=== PATIENT | female | born 1970 | race African-American/Black ===

== ENCOUNTER 2017-11-25 07:50 | Emergency (ER) | payer OTHER | END 2017-11-25 08:38 | disposition home or self-care (01) | LOC: SCSER 07:50 | DX: J06.9 Acute upper respiratory infection, unspecified (principal); Z79.899 Other long term (current) drug therapy | CPT/HCPCS: 99283 ==

== ENCOUNTER 2018-01-16 11:37 | Inpatient (IN) | payer OTHER, SELFPAY ==
[2018-01-16 12:37] LABS: ALT (SGPT) 25 U/L (8-55); AST (SGOT) 56 U/L (5-34); Albumin 3.2 g/dL (3.5-5.0); Alkaline Phosphatase 197 U/L (40-150); Anion Gap 10 mmol/L (10-20); BUN (Urea Nitrogen) 9 mg/dL (7.0-18.7); Bilirubin, Total 0.4 mg/dL (0.2-1.2); Calc. Creatinine Clearance 0 mL/min (70-130); Calcium 8.3 mg/dL (7.8-10.44); Carbon Dioxide 29 mmol/L (22-29); Chloride 100 mmol/L (98-107); Estimated GFR-MDRD Greater than 90; Globulin 3.9 g/dL (2.4-3.5); Glucose 123 mg/dL (70-105); Mean Corpuscular HGB CONC 31.3 g/dL (32.0-36.0); Mean Corpuscular Volume 86.3 fl (81.0-99.0); Mean Platelet Volume 6.7 fL (7.4-10.4); Platelet Count 487 thou/uL (130-400); Potassium 3.2 mmol/L (3.5-5.1); Protein, Total 7.1 g/dL (6.0-8.3); RBC Distribution Width 14.5 % (11.5-14.5); Red Blood Cell (RBC) Count 4.06 mill/uL (4.20-5.40); Sodium 136 mmol/L (136-145)
[2018-01-16 12:54] LABS: Band 27 % (5-11); Hypochromia SLIGHT = 6-15 cells (100X) (0-5/hpf); Lymphocytes 11 % (21-51); MDiff Complete? YES; Monocytes 4 % (0-10); Neutrophil 58 % (42-75); PLT Morphology Comment Appears Increased; Polychromasia SLIGHT = 2-3 cells (100X) (0-2/hpf)
[2018-01-16] MEDS ORDERED: Azithromycin 500 MG VIAL ONE (13:12)
--- NOTE | 2018-01-16 13:12 | RAD ---
AP VIEW OF THE CHEST: INDICATION: History of pneumonia, hypoxia, and cough. FINDINGS: There is diffuse parenchymal opacification of the left lung suspicious for multilobar pneumonia. The right lung is clear. No definite pleural effusion or pneumothorax is evident. IMPRESSION: Findings concerning for multilobar pneumonia affecting the left lung. Continued followup is recommen ded. POS: [facility]
[2018-01-16] MEDS ORDERED: Benzonatate 100 MG CAP ONE (13:20)
[2018-01-16] MEDS ORDERED: Ibuprofen 200 MG TAB ONE (13:20)
[2018-01-16 16:01] VITALS: BMI 38.2
[2018-01-16] MEDS ORDERED: Sodium Chloride 0.9% 1,000 ML IV SCH (16:15)
[2018-01-16] MEDS ORDERED: Famotidine 20 MG TAB PO PRN (17:54)
[2018-01-16] MEDS ORDERED: Docusate 100 MG CAP PO PRN (17:56)
[2018-01-16] MEDS: Sodium Chloride 0.9% 1,000 ML IV SCH ×2 (18:16→20:23)
[2018-01-16] MEDS: Diabetic Tussin 200 MG/10 ML UDCUP PO PRN ×2 (18:21→23:05)
[2018-01-16] MEDS: Promethazine 25 MG TAB PO PRN ×2 (19:01→23:05)
[2018-01-16] MEDS: cefTRIAXone\\ROCEPHIN 2 GM in Sodium Chloride 0.9% 100 ML IVPB SCH (20:22)
[2018-01-16] MEDS: Benzonatate 100 MG CAP PO PRN (20:23)
[2018-01-17] MEDS: Sodium Chloride 0.9% 1,000 ML IV SCH (02:47)
[2018-01-17 05:13] LABS: #Lymphocytes 2.1 thou/uL (1.20-3.40); #Monocytes 0.9 thou/uL (0.11-0.59); #Neutrophils 9.6 thou/uL (1.40-6.50); %Basophils 0.3 % (0.0-1.0); %Eosinophils 0.4 % (0.0-10.0); %Lymphocytes 16.2 % (21.0-51.0); %Monocytes 7.3 % (0.0-10.0); %Neutrophils 75.8 % (42.0-75.0); Hemoglobin 10.1 g/dL (12.0-16.0); Mean Corpuscular HGB CONC 32.4 g/dL (32.0-36.0); Mean Corpuscular Hemoglobin 28.2 pg (27.0-31.0); Mean Platelet Volume 6.5 fL (7.4-10.4); Platelet Count 470 thou/uL (130-400); RBC Distribution Width 14.6 % (11.5-14.5); Red Blood Cell (RBC) Count 3.59 mill/uL (4.20-5.40); White Blood Cell (WBC) Count 12.6 thou/uL (4.8-10.8)
--- NOTE | 2018-01-17 05:32 | HP ---
DATE OF ADMISSION: 01/16/2018 PRIMARY CARE PHYSICIAN: Dr. Kvng Grant CHIEF COMPLAINT: Shortness of breath. HISTORY OF PRESENT ILLNESS: The patient presented to clinic following worsening shortness of breath over the last several days. She was treated for allergies on an outpatient basis approximately 1 mon ago, making her upper respiratory symptoms blend into her shortness of breath episode which acute ly had gotten worse. She has had fever in the last 1-2 days. She was found to be hypoxic in clinic and stabilized on nasal cannula. Ambulance transported the patient to the emergency department which confirmed a left lower lobe pneumonia. PAST MEDICAL/SURGICAL HISTORY: Includes seasonal allergies, history of tachycardia treated with aten olol under the care of Dr. Mcdonnell. No reported prior surgical history. SOCIAL HISTORY: No tobacco history or illicit drug use. FAMILY HISTORY: Mother with diabetes and hypertension. Father diagnosed with cancer. HOME MEDICATIONS: Atenolol 25 mg daily, ranitidine 30 mg at bedtime p.r.n., Zyrtec daily p.r.n. REVIEW OF SYSTEMS: The patient with positive fevers, chills, fatigue. Positive shortness of breath. Negative chest pain. No abdomen pain, no change in stools, no skin rashes. No headache, no vision changes. No lower extremity edema. Positive cough. Positive congestion. PHYSICAL EXAMINATION: VITAL SIGNS: On arrival to floor, temperature of 98.3, pulse of 101, respiratory rate of 20, oxygen saturation of 95% on 2 liters nasal cannula, blood pressure 104/69, room air saturation in clinic ran ged between 84 and 88. LABORATORY WORK: White blood cell count of 17, platelet count of 487, hemoglobin of 11, sodium 136, potassium of 3.2, CO2 of 29, BUN of 9, creatinine 0.79, glucose of 123, total bilirubin of 0.4, AST i s 56, ALT 25, alkaline phosphatase of 197, albumin of 3.2. Blood culture currently pending. Chest x -ray confirms multilobar left-sided pneumonia. PHYSICAL EXAMINATION: GENERAL: The patient is alert and oriented, in acute respiratory distress. HEENT: Head is normocephalic, atraumatic. Extraocular movements are intact. Sclerae are clear. Or al mucosa is somewhat dry. NECK: Supple. HEART: Tachycardic. No murmurs auscultated. LUNGS: Diminished breath sounds and poor air movement with left lower rhonchi or rales. No wheezes auscultated. ABDOMEN: Soft, nontender, positive bowel sounds throughout. EXTREMITIES: Lower extremities without cyanosis or edema. NEUROLOGIC: The patient is alert and oriented. No focal deficits. Speech is normal. ASSESSMENT AND PLAN: Sepsis secondary to community-acquired pneumonia with hypoxia. Continuing Roce phin and azithromycin, IV fluids from the emergency department. We will follow up laboratory work an d repeat chest x-ray. We will continue the patient's atenolol this point in time. We will attempt t o wean the patient from oxygen as able.
[2018-01-17 05:37] LABS: Anion Gap 12 mmol/L (10-20); BUN (Urea Nitrogen) 7 mg/dL (7.0-18.7); Calc. Creatinine Clearance 154 mL/min (70-130); Calcium 7.8 mg/dL (7.8-10.44); Carbon Dioxide 27 mmol/L (22-29); Chloride 104 mmol/L (98-107); Estimated GFR-MDRD Greater than 90; Glucose 107 mg/dL (70-105); Potassium 3.2 mmol/L (3.5-5.1); Sodium 140 mmol/L (136-145)
[2018-01-17] MEDS ORDERED: Potassium Chloride 20 MEQ TAB PO SCH (06:00)
--- NOTE | 2018-01-17 07:39 | PRG ---
DATE OF SERVICE: 01/17/2018 HISTORY OF PRESENT ILLNESS: The patient states she tolerated the 3 liters IV fluids overnight well, has felt significantly nauseated and has not had significant emesis, but has been struggling to cough up the sputum production. She has been given Mucinex, Tessalon Perles, hot tea with some relief, bu t still struggles with the sputum, is feeling comfortable at rest; however, on nasal cannula 2 liters , still desaturating at this point off oxygen, tolerating IV antibiotics at this point in time. Did not ask for her stomach acid medication, does report some acid reflux. No blood reported. PHYSICAL EXAMINATION: VITAL SIGNS: This a.m., temperature 98.7, pulse of 93, respiratory rate of 18, oxygen saturation 96% on 2 liters nasal cannula, blood pressure 119/74. GENERAL: The patient is alert and oriented, in no acute distress. HEENT: Head is normocephalic, atraumatic. Extraocular movements are intact. Sclerae are clear. Na makeda cannula in place. Oral mucosa is moist. NECK: Supple. HEART: Regular rate and rhythm. No murmurs auscultated. LUNGS: With improved air movement, chest expansion; however, continues with rhonchi to left lung fie lds. ABDOMEN: Soft, nontender, positive bowel sounds throughout. EXTREMITIES: Lower extremities without cyanosis or edema. NEUROLOGIC: The patient is alert and oriented x3, no focal deficits. Speech is normal. LABORATORY DATA: White blood cell count improved to 12.6, hemoglobin of 10, MCV 87, platelet count o f 470. Sodium 140, potassium of 3.2, chloride of 104, CO2 of 27, creatinine 0.79, glucose 107. Bloo d cultures pending initial read, pending chest x-ray this a.m. ASSESSMENT AND PLAN: 1. Community-acquired pneumonia, sepsis, hypoxia secondary to respiratory failure, hypokalemia. Con tinuing IV antibiotics and oxygen support. The patient progressing is expected at this point, we ulysses l likely need 3 days of IV antibiotics and oxygen support. We will reassess the patient's ability to titrate off oxygen. Given sepsis criteria, the patient was aggressively hydrated with 3 liters IV f luid at this point and has been discontinued. We will see how she tolerates liquids today. White bl ood cell count and heart rate is much improved Hypokalemia remains from admission and was not changed following IV antibiotics and IV fluids. We will replace with potassium chloride and recheck, may ne ed to follow up magnesium if not improved. We will consider deep venous thrombosis prophylaxis as th e patient is currently oxygen bound.
--- NOTE | 2018-01-17 08:37 | RAD ---
2 VIEWS CHEST: Date 01/17/18 HISTORY: Pneumonia. FINDINGS: Comparison made to previous exam from 01/16/18. AP view of chest demonstrates extensive air space opacity seen in the left upper lobe lingula and lef t lower lobe. This was present on the previous comparison exam and is unchanged. Right lung is well a erated. No other significant abnormalities seen. IMPRESSION: Extensive left lung air space opacity, not significantly changed since the previous exam. POS: [facility]
[2018-01-17] MEDS: Famotidine 20 MG TAB PO SCH ×2 (08:50→20:02)
[2018-01-17] MEDS: Atenolol 25 MG TAB PO SCH (08:50)
[2018-01-17] MEDS: Acetaminophen 500 MG TAB PO PRN (08:51)
[2018-01-17] MEDS: Diabetic Tussin 200 MG/10 ML UDCUP PO PRN ×3 (08:51→17:19)
[2018-01-17] MEDS: Promethazine 25 MG TAB PO PRN ×2 (08:58→17:29)
[2018-01-17] MEDS: Azithromycin 500 MG in Sodium Chloride 0.9% 250 ML 250 ML IVPB SCH (12:39)
[2018-01-17] MEDS: cefTRIAXone\\ROCEPHIN 2 GM in Sodium Chloride 0.9% 100 ML IVPB SCH (20:01)
[2018-01-17] MEDS: Enoxaparin Sodium 40 MG/0.4 ML SYRINGE SC SCH (20:02)
[2018-01-17] MEDS: Benzonatate 100 MG CAP PO PRN (20:03)
[2018-01-17] MEDS: Ondansetron ODT 4 MG TAB PO PRN (20:03)
[2018-01-17] MEDS: guaiFENesin/Codeine Phosphate 200 mg/20 mg 10 ml UD Cup PO PRN (20:04)
[2018-01-18] MEDS: Benzonatate 100 MG CAP PO PRN ×3 (06:32→20:16)
[2018-01-18] MEDS: guaiFENesin/Codeine Phosphate 200 mg/20 mg 10 ml UD Cup PO PRN ×3 (06:33→20:16)
[2018-01-18 07:54] LABS: Anion Gap 11 mmol/L (10-20); BUN (Urea Nitrogen) 9 mg/dL (7.0-18.7); Calc. Creatinine Clearance 152 mL/min (70-130); Calcium 8.4 mg/dL (7.8-10.44); Carbon Dioxide 28 mmol/L (22-29); Chloride 102 mmol/L (98-107); Estimated GFR-MDRD Greater than 90; Glucose 131 mg/dL (70-105); Potassium 3.3 mmol/L (3.5-5.1); Sodium 138 mmol/L (136-145)
[2018-01-18 08:29] LABS: Mean Corpuscular HGB CONC 31.1 g/dL (32.0-36.0); Mean Corpuscular Hemoglobin 27.7 pg (27.0-31.0); Mean Corpuscular Volume 89.1 fl (81.0-99.0); Platelet Count 513 thou/uL (130-400); RBC Distribution Width 14.7 % (11.5-14.5); Red Blood Cell (RBC) Count 3.62 mill/uL (4.20-5.40); White Blood Cell (WBC) Count 11.7 thou/uL (4.8-10.8)
[2018-01-18] MEDS: Atenolol 25 MG TAB PO SCH (08:35)
[2018-01-18] MEDS: Acetaminophen 500 MG TAB PO PRN (08:36)
[2018-01-18] MEDS: Famotidine 20 MG TAB PO SCH ×2 (08:36→20:15)
[2018-01-18] MEDS: Loratadine 10 MG TAB PO PRN (08:41)
[2018-01-18 09:33] LABS: Band 18 % (5-11); Eosinophils 1 % (0-10); Lymphocytes 21 % (21-51); MDiff Complete? YES; Monocytes 10 % (0-10); Neutrophil 49 % (42-75)
[2018-01-18 09:34] LABS: Hypochromia SLIGHT = 6-15 cells (100X) (0-5/hpf); Metamyelocyte 1 % (0-0); PLT Morphology Comment Appears Increased; Polychromasia SLIGHT = 2-3 cells (100X) (0-2/hpf)
--- NOTE | 2018-01-18 10:16 | RAD ---
PA AND LATERAL VIEWS OF CHEST: Date: 01/18/18 HISTORY: Pneumonia. FINDINGS: Comparison made with exam from previous day. The heart size is stable. Lungs are well expanded with extensive left lung opacities, without signifi cant interval change. No pneumothoraces or large effusions are seen. Small effusions may be present. IMPRESSION: Left lung pneumonia. POS: [facility]
[2018-01-18] MEDS: Azithromycin 500 MG in Sodium Chloride 0.9% 250 ML 250 ML IVPB SCH (11:04)
--- NOTE | 2018-01-18 13:07 | PRG ---
DATE OF SERVICE: 01/18/2018 HISTORY OF PRESENT ILLNESS: The patient had infiltration in her IV site. Nursing staff has so far b een unable to reestablish IV access. Currently, attempted one more time after speaking with the nayla ent, if unable to obtain IV access will transition azithromycin to oral and to give the next dose of Rocephin IM. The patient does feel she is improved in energy status, tolerating food well compared t o throwing up the day before. She has maintained desaturations to 88 percentile range at rest off of nasal cannula, saturating well on 2 liters nasal cannula. No additional acute complaints today. VITAL SIGNS: Temperature 98.6, pulse of 93, respiratory rate of 18, oxygen saturation 95% on 2 liter s nasal cannula, blood pressure 101/68. LABORATORY DATA: Sodium 138, potassium of 3.3, CO2 of 28, creatinine 0.8, magnesium of 2.1. White b lood cell count of 11.7, hemoglobin 10.0, MCV of 89.1, platelet count of 513. Chest x-ray without interval improvement, left lower lobe pneumonia remains. A question of pleural e ffusions per Radiology. PHYSICAL EXAMINATION: GENERAL: The patient is alert and oriented, in no acute distress. HEENT: Head is normocephalic, atraumatic. Extraocular movements intact. Sclerae are clear. Oral m ucosa is moist. Nasal cannula is in place. NECK: Supple. HEART: Regular rate and rhythm. No murmurs auscultated. LUNGS: With improved left lower lung ray. Coarse breath sounds bilaterally lower bases. No whee zes. Light crackles present. ABDOMEN: Soft, nontender, positive bowel sounds throughout. EXTREMITIES: Lower extremities without cyanosis or edema. NEUROLOGIC: The patient is alert and oriented x3, no focal deficits. Speech is normal. ASSESSMENT AND PLAN: Community-acquired pneumonia, sepsis, hypoxia secondary to pneumonia, acute res piratory failure, hypokalemia. We will continue antibiotics, azithromycin and Rocephin as above. We will consider p.o. and IM if IV access is unable to be obtained. We will consider discharging the p atient tomorrow with home health oxygen versus home with oral antibiotics if improved saturations at rest, currently saturating 88%. Potassium still remains borderline. Magnesium is not low, replaceme nt with Klor-Con not effective. The patient is eating better today; however, may represent GI losses yesterday or antibiotic use. We will continue to follow.
[2018-01-18] MEDS: Promethazine 25 MG TAB PO PRN ×2 (17:06→20:16)
[2018-01-18] MEDS: cefTRIAXone\\ROCEPHIN 2 GM in Sodium Chloride 0.9% 100 ML IVPB SCH (20:14)
[2018-01-18] MEDS: Enoxaparin Sodium 40 MG/0.4 ML SYRINGE SC SCH (20:15)
[2018-01-19] MEDS: Ondansetron ODT 4 MG TAB PO PRN (02:22)
[2018-01-19] MEDS: Atenolol 25 MG TAB PO SCH (09:21)
[2018-01-19] MEDS: Famotidine 20 MG TAB PO SCH ×2 (09:21→20:31)
[2018-01-19] MEDS: Amoxicillin/Potassium Clav 875 MG TAB PO SCH ×2 (09:21→20:31)
[2018-01-19] MEDS: Loratadine 10 MG TAB PO PRN (09:21)
[2018-01-19] MEDS: Benzonatate 100 MG CAP PO PRN ×2 (09:22→20:31)
[2018-01-19] MEDS: Diabetic Tussin 200 MG/10 ML UDCUP PO PRN ×3 (09:22→20:32)
[2018-01-19] MEDS: Promethazine 25 MG TAB PO PRN (09:26)
[2018-01-19] MEDS ORDERED: Furosemide 40 MG/4 ML VIAL SLOW IVP SCH (12:00)
--- NOTE | 2018-01-19 12:02 | PRG ---
DATE OF SERVICE: 01/19/2018 HISTORY OF PRESENT ILLNESS: The patient still feels fatigued compared to baseline. Reports stable on 2 liters nasal cannula. Ambulated with nursing staff. Desaturations down to 84% desaturates into 88-86% on room air seated. The patient is tolerating oral intake well. No additional complaints other than slight rib pain with cough and difficulty producing sputum. The patient is taking antitussives and Mucinex at this point in time successfully, 3 days of IV antibiotics. Speaking with case management she does not qualify for home oxygen therapy and will be staying with us over the weekend until she is no longer hypoxic. PHYSICAL EXAMINATION: VITAL SIGNS: Today, temperature 98.8, pulse is 83, respiratory rate of 16, oxygen saturation 94% on 2 liters nasal cannula, blood pressure 114/78. Blood cultures negative at 48 hours. GENERAL: The patient is alert and oriented, no acute distress. HEENT: Head is normocephalic, atraumatic. Extraocular movements are intact. Sclerae are clear. Neck is supple. Oral mucosa is moist. Nasal cannula in place. CARDIOVASCULAR: Regular rate and rhythm at time of exam. No murmurs auscultated. RESPIRATORY: Positive rhonchi, left lower lobe present. Good air movement bilaterally. ABDOMEN: Soft, nontender, positive bowel sounds throughout. EXTREMITIES: Lower extremities without cyanosis or edema. NEUROLOGIC: The patient is alert and oriented. No focal deficits. Speech is normal. ASSESSMENT AND PLAN: Resolved sepsis, community-acquired pneumonia, left lobular transitioning from Rocephin and azithromycin after 72 hours and to oral Augmentin for the patient's acute respiratory failure and hypoxia secondary to pneumonia. Continuing oxygen therapy. This is what will be her determining factor for discharge. Regarding her hypokalemia we will recheck labs in the morning, prior thought to be secondary to gastrointestinal losses following emesis. The patient is no longer throwing up and tolerating orals well. We will follow up potassium in a.m., magnesium checked yesterday was good. The patient currently on Klor-Con 20 mEq b.i.d. replacement. The patient on prophylactic Lovenox. Will attempt lasix and steroid burst to see if we can improve lung function. MTDD
[2018-01-19] MEDS: Acetaminophen 500 MG TAB PO PRN (12:44)
[2018-01-19] MEDS: Enoxaparin Sodium 40 MG/0.4 ML SYRINGE SC SCH (20:32)
[2018-01-20] MEDS: Diabetic Tussin 200 MG/10 ML UDCUP PO PRN ×2 (03:27→08:29)
[2018-01-20] MEDS: Benzonatate 100 MG CAP PO PRN ×2 (04:42→08:19)
[2018-01-20 05:15] LABS: Anion Gap 11 mmol/L (10-20); BUN (Urea Nitrogen) 11 mg/dL (7.0-18.7); Calc. Creatinine Clearance 156 mL/min (70-130); Calcium 8.6 mg/dL (7.8-10.44); Carbon Dioxide 30 mmol/L (22-29); Chloride 99 mmol/L (98-107); Estimated GFR-MDRD Greater than 90; Glucose 125 mg/dL (70-105); Sodium 136 mmol/L (136-145)
[2018-01-20 05:26] LABS: #Eosinphils 0.3 thou/uL (0.0-0.7); #Lymphocytes 3.3 thou/uL (1.20-3.40); #Monocytes 0.8 thou/uL (0.11-0.59); #Neutrophils 9.3 thou/uL (1.40-6.50); %Basophils 0.3 % (0.0-1.0); %Eosinophils 2.3 % (0.0-10.0); %Lymphocytes 23.9 % (21.0-51.0); %Monocytes 5.9 % (0.0-10.0); %Neutrophils 67.5 % (42.0-75.0); Hemoglobin 10.3 g/dL (12.0-16.0); Mean Corpuscular Hemoglobin 28.3 pg (27.0-31.0); Mean Corpuscular Volume 88.2 fl (81.0-99.0); Mean Platelet Volume 6.6 fL (7.4-10.4); Platelet Count 585 thou/uL (130-400); RBC Distribution Width 14.7 % (11.5-14.5); Red Blood Cell (RBC) Count 3.64 mill/uL (4.20-5.40); White Blood Cell (WBC) Count 13.8 thou/uL (4.8-10.8)
[2018-01-20] MEDS: Famotidine 20 MG TAB PO SCH ×2 (08:13→20:45)
[2018-01-20] MEDS: Atenolol 25 MG TAB PO SCH (08:13)
[2018-01-20] MEDS: Amoxicillin/Potassium Clav 875 MG TAB PO SCH ×2 (08:13→20:45)
[2018-01-20] MEDS: Acetaminophen 500 MG TAB PO PRN (08:19)
[2018-01-20] MEDS: Loratadine 10 MG TAB PO PRN (08:23)
--- NOTE | 2018-01-20 10:28 | RAD ---
PA AND LATERAL OF THE CHEST: HISTORY: Pneumonia. COMPARISON: Prior dated 01/19/08. FINDINGS: The airspace consolidation within the left lower lobe has improved from the prior examination. There are persistent small bilateral pleural effusions. Patchy opacities remain within the left lower lob e as well as portions of the left upper lobe. Thoracolumbar scoliosis is similar. IMPRESSION: 1. Improving left lung pneumonia. Patchy opacities remain within the left upper lobe and left lower lobe. 2. Small bilateral pleural effusions persist. POS: [facility]
[2018-01-20] MEDS ORDERED: methylPREDNISolone Sod Succ/PF 125 MG/2 ML VIAL IVP ONE (11:52)
[2018-01-20] MEDS: guaiFENesin/Codeine Phosphate 200 mg/20 mg 10 ml UD Cup PO PRN ×2 (12:18→20:50)
--- NOTE | 2018-01-20 12:21 | PRG ---
DATE OF SERVICE: 01/20/2018 PRIMARY CARE PHYSICIAN: Kvng Grant M.D. SUBJECTIVE: The patient is feeling much better. She improved significantly after the 1 dose of IV L asix. She is ambulating in the hallway with occasional dyspnea on exertion, but better with her oxyg en in bed. She is not short of breath. Her pulse ox is staying at 94% to 95% on room air and taking p.o. well. States that she is anxious to get home, but continues to feel short of breath when walki ng in the hallway. OBJECTIVE: VITAL SIGNS: Temperature 97.8, T-max 97.9, pulse 89-100, respirations 16, pulse ox is 94% to 95% on room air and blood pressure 122/79. GENERAL: She is awake and alert, in no acute distress, resting comfortably in bed. HEENT: Mucosa is moist. NECK: Supple. HEART: Regular rate and rhythm. LUNGS: With some rhonchi on the left side. No wheeze, no rales at the bases. ABDOMEN: Obese, soft, nontender and nondistended. EXTREMITIES: With no edema. LABORATORY AND IMAGING DATA: Sodium 136, potassium 4.0, chloride 99, CO2 of 30, BUN and creatinine 1 1 and 0.78, serum glucose of 125. White blood cell count 13.8 thousand, hemoglobin and hematocrit 10 .3 and 32.1, platelets of 585. Chest x-ray from this morning revealed improved left lung pneumonia. Continues to have patchy opacities in the left upper and left lower lobe, bilateral small pleural ef fusions. ASSESSMENT AND PLAN: This is a 47-year-old female patient of Dr. Kvng Grant with resolved sepsi s, community-acquired pneumonia, continues stable on oral Augmentin at this time. 1. Left-sided pneumonia. We will continue Augmentin. 2. Hypoxia has improved. I will begin weaning off her oxygen today. Continue to monitor pulse oxim etry and just use oxygen as needed after walking. Her insurance did not approve home O2, so she is n ot safe to go home at this point. 3. Hypokalemia has resolved. We will continue to follow in the morning. Nausea and vomiting has re solved, so this should improve. 4. Prophylaxis. Lovenox. We will continue until she is up ambulating better on her own and spendin g less time in bed. 5. Disposition: If she can wean off of her oxygen, hopefully home in the morning.
[2018-01-20] MEDS ORDERED: Saccharomyces boulardii 250 MG CAP PO SCH (20:30)
[2018-01-20] MEDS: Enoxaparin Sodium 40 MG/0.4 ML SYRINGE SC SCH (20:45)
[2018-01-21] MEDS: Acetaminophen 500 MG TAB PO PRN ×2 (04:55→12:11)
[2018-01-21] MEDS: Diabetic Tussin 200 MG/10 ML UDCUP PO PRN ×2 (04:56→11:58)
[2018-01-21] MEDS: Benzonatate 100 MG CAP PO PRN ×2 (04:56→11:58)
[2018-01-21 05:29] LABS: Anion Gap 13 mmol/L (10-20); BUN (Urea Nitrogen) 12 mg/dL (7.0-18.7); Calc. Creatinine Clearance 154 mL/min (70-130); Calcium 9.5 mg/dL (7.8-10.44); Carbon Dioxide 26 mmol/L (22-29); Chloride 102 mmol/L (98-107); Estimated GFR-MDRD Greater than 90; Glucose 118 mg/dL (70-105); Potassium 4.7 mmol/L (3.5-5.1); Sodium 136 mmol/L (136-145)
[2018-01-21 06:02] LABS: Band 6 % (5-11); Hemoglobin 10.5 g/dL (12.0-16.0); Lymphocytes 16 % (21-51); MDiff Complete? YES; Mean Corpuscular HGB CONC 32.1 g/dL (32.0-36.0); Mean Corpuscular Hemoglobin 27.8 pg (27.0-31.0); Mean Corpuscular Volume 86.6 fl (81.0-99.0); Mean Platelet Volume 6.1 fL (7.4-10.4); Monocytes 5 % (0-10); Neutrophil 73 % (42-75); PLT Morphology Comment Appears Increased; Platelet Count 644 thou/uL (130-400); RBC Distribution Width 14.6 % (11.5-14.5); Red Blood Cell (RBC) Count 3.77 mill/uL (4.20-5.40); White Blood Cell (WBC) Count 19.4 thou/uL (4.8-10.8)
[2018-01-21] MEDS: Amoxicillin/Potassium Clav 875 MG TAB PO SCH (08:07)
[2018-01-21] MEDS: Famotidine 20 MG TAB PO SCH (08:07)
[2018-01-21] MEDS: Atenolol 25 MG TAB PO SCH (08:07)
[2018-01-21] MEDS: Loratadine 10 MG TAB PO PRN (08:08)
[2018-01-21 08:20] VITALS: BP 124/77; TEMP 97.4
[2018-01-21] MEDS ORDERED: Saccharomyces boulardii 250 MG CAP PO SCH (09:00)
--- NOTE | 2018-01-21 10:32 | DIS ---
DATE OF ADMISSION: 01/16/2018 DATE OF DISCHARGE: 01/21/2018 PRIMARY CARE PHYSICIAN: Kvng Grant M.D. ADMISSION DIAGNOSES: 1. Left-sided pneumonia. 2. Sepsis syndrome. 3. Hypoxia. DISCHARGE DIAGNOSES: 1. Left-sided pneumonia, improved. 2. Sepsis, resolved. 3. Hypertension. 4. Tachycardia. CONSULTATIONS: None. PROCEDURES: IV antibiotics, oxygen therapy. HOSPITAL COURSE: This is a 47-year-old female patient of Dr. Kvng Grant, who presented to the e mergency department with worsening shortness of breath and upper respiratory symptoms. She was found to be hypoxic in the clinic. She was taken to the Emergency Department by ambulance and found to dumont ve a left lower lobe infiltrate. She improved with Rocephin and Zithromax. She was continued on ant ibiotic therapy during her hospitalization. She was started on DVT prophylaxis as well during her ho spitalization she transitioned to oral antibiotics including Augmentin and continued to improve. Zoila ns were made for her to be discharged home with home O2 due to her continued hypoxia with desatting i nto the 85-86 range. Her insurance would not facilitate that and assist with payment, so she was kep t in the hospital due to her persistent hypoxia. She continued to improve. She was weaned off of th e oxygen and was stable walking in the room without desatting. She was able to take a shower without desaturation. She reports less shortness of breath with decreased activity. No further fever and s table for discharge on the day of discharge. DISCHARGE PHYSICAL EXAMINATION: VITAL SIGNS: Temperature 97.4, pulse of 88, respirations 18, blood pressure 124/77, pulse ox 95% on room air. GENERAL: She is awake and alert, no conversational dyspnea. NECK: Supple. HEART: Regular rate and rhythm. LUNGS: With decreased breath sounds on the left side. No wheezes or rales. ABDOMEN: Obese, soft. EXTREMITIES: No edema. DISCHARGE LABORATORY DATA AND IMAGING DATA: Sodium is 136, potassium 4.7, chloride 102, CO2 26, BUN and creatinine 12 and 0.79. GFR of 90. Serum glucose was 118. White blood cell count was 19.4 thou sand, hemoglobin and hematocrit 10.5 and 32.6, platelets of 644, bandemia was down to 6% which was 27 % on admission. Blood culture is negative. Chest x-ray from yesterday revealed persistent left-side d infiltrate. DISCHARGE MEDICATIONS: Include, Tylenol p.r.n., Augmentin 875 b.i.d. for 7 more days, atenolol 25 mg daily, Pepcid p.r.n., potassium chloride 10 mEq daily, Florastor once daily. FOLLOWUP INSTRUCTIONS: Patient to follow up with Dr. Grant this next week. Follow up outpatient. Results of C. diff screen as an outpatient for onset of diarrhea.
== END 2018-01-21 14:47 | disposition home or self-care (01) | DRG 871 ==
LOC: ERS 11:37 → T4-B 13:30
PROVIDERS: ADMIT Family Medicine; ATTEND Family Medicine
DX: A41.9 Sepsis, unspecified organism (principal); J18.9 Pneumonia, unspecified organism; J96.01 Acute respiratory failure with hypoxia; I10 Essential (primary) hypertension; E87.6 Hypokalemia
CPT/HCPCS: 36415; 71045; 71046; 80048; 80053; 83735; 85025; 87040; 87324; 87449; 93005; 96365; 96366; 96375; J0456; J0696; J1650; J1940; J2930; J7050; Q0162

== ENCOUNTER 2018-07-04 14:29 | Outpatient (CLI) | payer BC | END 2018-07-04 14:30 | disposition home or self-care (01) | LOC: BICMAMMO 14:29 | PROVIDERS: ATTEND Family Medicine | DX: Z12.31 Encounter for screening mammogram for malignant neoplasm of breast (principal); R76.11 Nonspecific reaction to tuberculin skin test without active tuberculosis | CPT/HCPCS: 71046; 77063; 77067 ==

== ENCOUNTER 2019-08-13 15:05 | Outpatient (CLI) | payer BC ==
--- NOTE | 2019-08-13 15:42 | MMO ---
Bilateral MAMMO Bilat Screen [facility]. CLINICAL HISTORY: Patient is 48 years old and is seen for screening. The patient has no family history of breast cancer. The patient has no personal history of cancer. VIEWS: The views performed were: bilateral craniocaudal with tomosynthesis; bilateral mediolateral oblique; and bilateral mediolateral oblique with tomosynthesis. FILMS COMPARED: The present examination has been compared to prior imaging studies performed at [facility] on 07/04/2018, and at [facility] on 08/28/2015, 02/18/2016 and 10/24/2016. This study has been interpreted with the assistance of computer-aided detection. MAMMOGRAM FINDINGS: There are scattered fibroglandular densities. There are no suspicious masses, suspicious calcifications, or new areas of architectural distortion. IMPRESSION: THERE IS NO MAMMOGRAPHIC EVIDENCE OF MALIGNANCY. A ROUTINE FOLLOW-UP MAMMOGRAM IN 1 YEAR IS RECOMMENDED. THE RESULTS OF THIS EXAM WERE SENT TO THE PATIENT. ACR BI-RADS Category 1 - Negative MAMMOGRAPHY NOTE: 1. A negative mammogram report should not delay a biopsy if a dominant of clinically suspicious mass is present. 2. Approximately 10% to 15% of breast cancers are not detected by mammography. 3. Adenosis and dense breasts may obscure an underlying neoplasm. Reported by: ALISHA VENTURA MD Electonically Signed: [id number]
== END 2019-08-13 15:06 | disposition home or self-care (01) ==
LOC: BICMAMMO 15:05
PROVIDERS: ATTEND Family Medicine
DX: Z12.31 Encounter for screening mammogram for malignant neoplasm of breast (principal)
CPT/HCPCS: 77063; 77067

== ENCOUNTER 2020-08-14 11:31 | Outpatient (CLI) | payer BC ==
--- NOTE | 2020-08-14 12:48 | MMO ---
Bilateral MAMMO Bilat Screen [facility]. CLINICAL HISTORY: Patient is 49 years old and is seen for screening. The patient has no family history of breast cancer. The patient has no personal history of cancer. VIEWS: The views performed were: bilateral craniocaudal with tomosynthesis; bilateral mediolateral oblique with tomosynthesis; and bilateral exaggerated craniocaudal. FILMS COMPARED: The present examination has been compared to prior imaging studies performed at [facility] on 07/04/2018 and 08/13/2019, and at [facility] on 02/18/2016 and 10/24/2016. This study has been interpreted with the assistance of computer-aided detection. MAMMOGRAM FINDINGS: There are scattered fibroglandular densities. There are no suspicious masses, suspicious calcifications, or new areas of architectural distortion. IMPRESSION: THERE IS NO MAMMOGRAPHIC EVIDENCE OF MALIGNANCY. A ROUTINE FOLLOW-UP MAMMOGRAM IN 1 YEAR IS RECOMMENDED. THE RESULTS OF THIS EXAM WERE SENT TO THE PATIENT. ACR BI-RADS Category 1 - Negative MAMMOGRAPHY NOTE: 1. A negative mammogram report should not delay a biopsy if a dominant of clinically suspicious mass is present. 2. Approximately 10% to 15% of breast cancers are not detected by mammography. 3. Adenosis and dense breasts may obscure an underlying neoplasm. Reported by: ALISHA VENTURA MD Electonically Signed: [id number]
== END 2020-08-14 11:32 | disposition home or self-care (01) ==
LOC: BICMAMMO 11:31
PROVIDERS: ATTEND Radiology Diagnostic Radiology
DX: Z12.31 Encounter for screening mammogram for malignant neoplasm of breast (principal)
CPT/HCPCS: 77063; 77067

== ENCOUNTER 2022-05-20 09:33 | Outpatient (CLI) | payer OTHER | END 2022-05-20 09:34 | disposition home or self-care (01) | LOC: DTY/OP 09:33 | PROVIDERS: ATTEND Family Medicine | DX: R73.03 Prediabetes (principal) | CPT/HCPCS: 97802 ==

== ENCOUNTER 2023-10-19 17:00 | Outpatient (CLI) | payer BC | END 2023-10-19 17:01 | disposition home or self-care (01) | LOC: SLEEPLAB 17:00 | PROVIDERS: ATTEND Family Medicine | DX: G47.33 Obstructive sleep apnea (adult) (pediatric) (principal); R53.83 Other fatigue | CPT/HCPCS: 95810 ==